=== PATIENT | male | born 1955 | race Caucasian/White ===

== ENCOUNTER 2016-10-23 09:46 | Day surgery (SDC) | payer OTHER ==
[2016-10-23] VITALS (7 sets, daily range): BP systolic 100–145; BP diastolic 67–88; PULSE 66–90; RESP 15–16; Ht 180.3 cm; Wt 79.9 kg
[~2016-10-23] VITALS: Ht 180.3 cm; Wt 79.9 kg
[~2016-10-23 09:46] MED LIST: ACETAMINOPHEN 1000 MG/100 ML IVPB ONE; CEFAZOLIN 1 GM INJ ONE; ONDANSETRON 4 MG INJ ONE
[2016-10-23] MEDS ORDERED: ATOR20TA38 PO (10:25)
[2016-10-23] MEDS ORDERED: ASPI-664 PO (10:25)
[2016-10-23] MEDS ORDERED: AMLO5TAB4 PO (10:26)
[2016-10-23] MEDS ORDERED: LOSA50TA6 PO (10:26)
--- NOTE | 2016-10-23 12:26 | HPN ---
Date/Time of Note Date/Time of Note DATE: 10/23/16 TIME: 12:26 Interval H&P Admission Note Pt. seen H&P reviewed: No system changes JESSICA BREWSTER MD Oct 23, 2016 12:26
--- NOTE | 2016-10-23 14:12 | OPR ---
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 Surgeon: JESSICA BREWSTER MD [employer]: [employer] Anesthesia: general Estimated Blood Loss: 10 - 50 ml's Complications: None Pt Condition Post Procedure: stable Disposition: PACU Indications Right parotid tail tumor. Operative\Procedure Findings Warthin's tumor per frozen section analysis. Procedure Description Description of procedure: The patient was identified in the holding area. We had a discussion to confirm understanding of indications, risks, benefits, alternatives and postoperative care associated with the operation. Informed consent was signed. The patient was taken the operating room and placed supine on the operating table. General endotracheal anesthesia was achieved without difficulty. Facial nerve monitor was installed and nerve monitoring was performed throughout the duration of the case. A shoulder roll was placed. The right face and neck was prepped and draped in normal sterile fashion. A 15 blade was used to make a Miguel incision in a preexisting cervical crease. Subplatysmal flaps were elevated circumferentially. Sub SMAS flap was elevated and the tumor inspected and palpated. The parotid tail was dissected off of the SCM and the EAC more superiorly. The greater auricular nerve was sacrificed as it was entering the main tumor location. The tragal pointer and TM suture were isolated by blunt dissection. This area was packed and the digastric muscle was identified in level two to approximate CN7 position. Back at the TM suture dissection point, blunt dissection with stumulation was used to identify the seventh verve main trunk. The inferior division was isolated and overlying parotid tissue was cauterized and transected. This led to great mobilization of the mass inferiorly and made lower division dissection quite easy. The mass was delivered inferiorly and with all branches safely superior, the final cuts were made to free the tumor. Intraoperative pathology diagnosis confirmed Warthin's tumor. Hemostasis was assured. A 3-0 Vicryl was used to reapproximate the SMAS layer. Running 50 fast was used to reapproximate the skin. The patient tolerated the procedure well and was extubated, taken to PACU in stable condition. Complications: None JESSICA BREWSTER MD Oct 23, 2016 14:12
[2016-10-23] MEDS ORDERED: OXYCODONE/ACETAMINOPHEN (5/325) TAB PO PRN ×2 (14:30)
[2016-10-23] MEDS ORDERED: hydrALAzine 20 MG INJ IV PRN (14:30)
[2016-10-23] MEDS ORDERED: FENTAnyl 50 MCG/ML VIAL IV PRN ×3 (14:30)
[2016-10-23] MEDS ORDERED: DIPHENHYDRAMINE 50 MG INJ IV PRN (14:30)
[2016-10-23] MEDS ORDERED: MEPERIDINE 25 MG INJ IV PRN (14:30)
[2016-10-23] MEDS ORDERED: LABETALOL HCL 20MG INJ IV PRN (14:30)
[2016-10-23] MEDS ORDERED: EPHEDrine SULFATE 50 MG/5 ML SYG IV PRN (14:30)
[2016-10-23] MEDS ORDERED: morphine (1 MG/ML) 10ML SYRINGE IV PRN ×3 (14:30)
[2016-10-23] MEDS ORDERED: HYDROCODONE/APAP (5/325) TAB PO PRN (14:30)
[2016-10-23] MEDS ORDERED: ONDANSETRON 4 MG INJ IV PRN (14:30)
[2016-10-24] MEDS ORDERED: DEXAMETHASONE 4 MG/ML 1 ML INJ ONE (18:02)
[2016-10-24] MEDS ORDERED: PROPOFOL 100 ML ONE (18:02)
[2016-10-24] MEDS ORDERED: morphine 10 MG INJ ONE (18:02)
[2016-10-24] MEDS ORDERED: LIDOCAINE 2% (SDV) 5 ML INJ ONE (18:02)
[2016-10-24] MEDS ORDERED: PHENYLephrine (100 MCG/ML) 5ML SYG ONE (18:02)
== END 2016-10-23 17:08 | disposition home or self-care (01) ==
LOC: SDS 09:46
PROVIDERS: ATTEND Otolaryngology
DX: D11.0 Benign neoplasm of parotid gland (principal); I10 Essential (primary) hypertension
CPT/HCPCS: 42415; 88307; 88331; J0131; J0690; J2405; Z7512; Z7610; J1100; J2270; J2370; J3010